=== PATIENT | female | born 1975 | race Caucasian/White ===

== ENCOUNTER 2023-08-02 06:10 | Emergency (ER) | payer OTHER ==
[~2023-08-02] VITALS: Ht 160 cm; Wt 72.6 kg
[2023-08-02 06:25] VITALS: BP 147/79; PULSE 89; RESP 18; TEMP 97.8; O2SAT 95
[2023-08-02] MEDS: AZITHROMYCIN 250 MG TAB PO ONE (06:40)
[2023-08-02] MEDS: predniSONE 20 MG TAB PO ONE (06:40)
[2023-08-02] MEDS ORDERED: AZIT250T4 PO (07:37)
[2023-08-02] MEDS ORDERED: PRED20TA5 PO (07:37)
[2023-08-02 07:48] VITALS: BP 107/67; PULSE 89; RESP 18; TEMP 97.8; O2SAT 95
[2023-08-02 08:18] LABS: FLU A ANTIGEN negative (NEGATIVE); FLU B ANTIGEN NEGATIVE (NEGATIVE)
== END 2023-08-02 07:50 | disposition home or self-care (01) ==
LOC: MED 06:10
DX: R05.9 Cough, unspecified (principal); R09.89 Other specified symptoms and signs involving the circulatory and respiratory systems; Z20.822 Contact with and (suspected) exposure to COVID-19; Z79.2 Long term (current) use of antibiotics; Z79.899 Other long term (current) drug therapy
CPT/HCPCS: 71045; 87426; 87804; 99284; J7512

== ENCOUNTER 2023-11-17 12:00 | Emergency (ER) | payer OTHER ==
[~2023-11-17] VITALS: Ht 162.6 cm; Wt 68.0 kg
[~2023-11-17 12:00] MED LIST: AZIT250T4 PO; PRED20TA5 PO
--- NOTE | 2023-11-17 12:15 | NUR ---
PT Ambulated to er bed 11
[2023-11-17 12:19] VITALS: BP_SYST 100; BP_SYST 147; BP_DIAS 6; BP_DIAS 66; PULSE 71; PULSE 90; RESP 16; RESP 18; TEMP 98.1; TEMP 98.4; O2SAT 100; O2SAT 98
[2023-11-17] MEDS: NACL 0.9% 1,000 ML IV ONE ×2 (12:53→12:54)
--- NOTE | 2023-11-17 13:03 | NUR ---
IMAGING AT BEDSIDE FOR CHEST RAYS
[2023-11-17 13:07] LABS: BASOPHILS % (AUTO) 0.4 % (0.0-2.0); EOSINOPHILS % (AUTO) 0.5 % (0.0-4.0); HEMATOCRIT 43.8 % (36-48); LYMPHOCYTES # (AUTO) 2.9 K/uL (2.5-16.5); LYMPHOCYTES % (AUTO) 33.3 % (20.5-51.1); MEAN CORPUSCULAR HEMOGLOBIN 30 pg (27-31); MEAN CORPUSCULAR HGB CONC 34 g/dL (33-37); MEAN CORPUSCULAR VOLUME 86.5 fL (80-94); MONOCYTES # (AUTO) 0.6 K/uL (0.8-1.0); MONOCYTES % (AUTO) 7.3 % (1.7-9.3); NEUTROPHILS % (AUTO) 58.5 % (42.2-75.2); PLATELET COUNT (AUTO) 261 K/uL (140-450); RED BLOOD CELL COUNT(AUTO) 5.07 MIL/uL (4.20-5.40); RED CELL DISTRIBUTION WIDTH 14.2 % (11.6-13.7); WHITE BLOOD COUNT (AUTO) 8.6 K/uL (4.8-10.8)
[2023-11-17 13:56] LABS: ANION GAP 12.8 (8-16); CALCIUM 9.1 mg/dL (8.5-10.1); CARBON DIOXIDE 26.9 mmol/L (21-32); CREATININE 0.6 mg/dL (0.6-1.3); POTASSIUM 3.7 mmol/L (3.5-5.1)
[2023-11-17] MEDS: INSULIN REGULAR, HUMAN 100 UNIT/ML VIAL SUBQ ONE (16:08)
[2023-11-17] MEDS: POTASSIUM CHL 20 MEQ/NACL 0.9% 1,000 ML IV ONE (16:12)
--- NOTE | 2023-11-17 17:05 | NUR ---
Patient discharged with v/s stable. Written and verbal after care instructions given and explained. Patient alert, oriented and verbalized understanding of instructions. Ambulatory with steady gait. All questions addressed prior to discharge. ID band removed. Patient advised to follow up with PMD. Patient educated on indication of medication including possible reaction and side effects. Opportunity to ask questions provided and answered.
[2023-11-17 17:06] VITALS: BP 109/64; PULSE 59; RESP 22; TEMP 98.4; O2SAT 96
== END 2023-11-17 17:05 | disposition home or self-care (01) ==
LOC: MED 12:00
DX: E11.65 Type 2 diabetes mellitus with hyperglycemia (principal); R06.02 Shortness of breath; Z79.899 Other long term (current) drug therapy
CPT/HCPCS: 36415; 71045; 80048; 82009; 82948; 85025; 96360; 96361; 96372; 99284; J1815; J7030